=== PATIENT | male | born 1945 | race Caucasian/White ===

== ENCOUNTER 2023-09-22 10:34 | Emergency (ER) | payer MEDICARE, SELFPAY ==
[2023-09-22] VITALS (49 sets, daily range): BP systolic 119–175; BP diastolic 41–103; PULSE 47–59; RESP 12–25; TEMP 36.6–36.9; O2SAT 93–98
--- NOTE | 2023-09-22 10:30 | RT.EKG_ITS ---
APPROVED REPORT Exam: Resting ECG Reason for Exam: Syncope Patient Location: E HR:49 bpm ECG Measurements Heart Rate 49 AXIS TN 167 P 10 QRSd 94 QRS -5 QT 430 T 32 QTc 391 Conclusion Sinus bradycardia...rate< 60 Low voltage, precordial leads...precordial leads <1.0mV Sinus bradycardia rate of 49. Normal axis. Intervals within normal limits. No ST segment abnormali ties beyond mild upsloping ST segment elevation in V2 and mild ST segment depression in lead III. No prior for comparison. No acute injury pattern.
--- NOTE | 2023-09-22 10:51 | ED.GENADUL_ITS ---
Discharge Plan Disposition Patient Disposition: Home Condition: Stable Discharge Details Clinical Impression: Vasovagal near syncope Primary Care Provider: Vanessa,Local ED Provider: Fito Chowdhury Home Meds and New Rx's Prescriptions: Continued insulin lispro 100 unit/mL solution See Rx Instructions .ROUTE .COMPLEX Rx Instructions: base of 9u, then sliding scale; insulin glargine [Basaglar KwikPen U-100 Insulin] 100 unit/mL (3 mL) insulin pen 5 unit subcut DAILY metoprolol tartrate 25 mg tablet 25 mg PO BID Eliquis 5 mg tablet 5 mg PO BID hydrochlorothiazide 25 mg tablet 25 mg PO ONCE losartan 100 mg tablet 100 mg PO ONCE hydralazine 25 mg tablet 50 mg PO TID atorvastatin 40 mg tablet 60 mg PO ONCE Discharge Instructions Instructions: Vasovagal Response Additional Instructions: You were seen in the emergency department for your near syncope at home. Your cardiac workup is negative, your EKG shows no abnormalities, CT head is negative for any pathology as well as your chest x-ray, your laboratory workup is unremarkable for any signs of infection or major electrolyte abnormalities. There is a mild increase in your blood urea nitrogen which is a early marker of mild dehydration and kidney function. This could be the cause of your near syncope. Please hydrate yourself well over the coming days any nutritious foods, monitor your condition at home for any further palpitations or chest pain or dizziness and return to ED for such. 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 Discharge Data Discharge Date/Time-TO BE ENTERED AT DEPARTURE: 09/22/23 15:56 HPI General Date/Time Provider Initiated Documentation: 09/22/23 10:51 . HPI Narrative: 78 year-old male presents to ED today by EMS with his and son with a chief complaint of near syncope at the breakfast table today with onset around 0930 this morning. Quality described as patient was noted drooping in his chair, his eyes were rolled back- he quickly regained some level of consciousness but was a little slow- answering questions appropriately on arrival, no radiation to chest pain, focal weakness, shortness of breath, headache, visual changes, slurred speech. Severity is described as moderate to severe. Palliating factors include nothing specific. Provoking factors include nothing specific. Events leading up to the incident/Associated Symptoms: Patient denies any cardiac history, has had an 1 episode of A-fib, denied any chest pain throughout the whole of the morning, patient is a noted diabetic-states his baseline heart rate is in the 40s and 50s. Patient is anticoagulated on apixaban. Related Data Home Medications ?Medication ?Instructions ?Recorded ?Confirmed apixaban 5 mg tablet (Eliquis) 5 mg PO BID 09/22/23 09/22/23 atorvastatin 40 mg tablet 60 mg PO ONCE 09/22/23 09/22/23 hydralazine 25 mg tablet 50 mg PO TID 09/22/23 09/22/23 hydrochlorothiazide 25 mg tablet 25 mg PO ONCE 09/22/23 09/22/23 insulin glargine 100 unit/mL (3 5 unit subcut DAILY 09/22/23 09/22/23 mL) subcutaneous pen (Basaglar KwikPen U-100 Insulin) insulin lispro 100 unit/mL See Rx Instructions .Route .COMPLEX 09/22/23 09/22/23 subcutaneous solution losartan 100 mg tablet 100 mg PO ONCE 09/22/23 09/22/23 metoprolol tartrate 25 mg tablet 25 mg PO BID 09/22/23 09/22/23 Allergies Allergy/AdvReac Type Severity Reaction Status Date / Time sulfamethoxazole (From Allergy Mild Hives Verified 09/22/23 11:12 Bactrim) trimethoprim (From Bactrim) Allergy Mild Hives Verified 09/22/23 11:12 General Stated Complaint: Dizzy/Sync ZEB: 3 Review of Systems All systems reviewed & are unremarkable except as noted in HPI and below Exam Narrative Exam Narrative: GENERAL APPEARANCE: Well-nourished, non-toxic, awake and alert, atraumatic, no acute distress. SKIN: Warm, pink, dry, intact, without rashes/lesions/ulcerations. HEAD: Normocephalic, atraumatic, normal hair distribution for gender/age. EYES: Pupils PERRLA, EOMs intact without nystagmus, normal conjunctiva, no exudates on lids/lashes. ENT: Nares patent, no circumoral cyanosis, no facial swelling NECK: Supple, trachea midline, painless cervical ROM. LUNGS/CHEST: Lungs CTA bilaterally, non-labored respirations, normal A/P diameter, symmetrical expansion, no chest wall deformity HEART (CV/PV): Regular rate and rhythm without murmur, no peripheral edema, no JVD. ABDOMEN: Soft, non-distended, no guarding. MSK: Normal ROM, no swelling/deformity to bilateral UEs or LEs, moving all extremities without weakness, no cyanosis, spine midline without tenderness, normal curvature. NEURO: Mental Status AAOx4 - alert to person, place, time, events No facial droop, no forehead involvement. Motor: No focal weakness - strength 5/5 in bilateral UEs and LEs, proximal and distal, symmetric. Sensory: sensation intact to light touch globally. Gait normal: patient ambulated without ataxia into ED room. PSYCH: euthymic, cooperative, pleasant, appropriate speech Course Vital Signs Vital signs: Vital Signs Temperature 36.9 C 09/22/23 10:42 Pulse 51 L 09/22/23 10:42 Respiratory Rate 16 09/22/23 10:42 Blood Pressure 134/41 L 09/22/23 10:42 Pulse Oximetry 98 09/22/23 10:42 Temperature 36.9 C 09/22/23 10:42 Pulse 51 L 09/22/23 10:42 Respiratory Rate 16 09/22/23 10:42 Blood Pressure 134/41 L 09/22/23 10:42 Pulse Oximetry 98 09/22/23 10:42 Pain Level 0 09/22/23 10:42 Medical Decision Making This dictation utilizes [id number] dictation software and may contain unedited grammatical errors. 78 year-old male presents to ED today by EMS with his and son with a chief complaint of near syncope at the breakfast table today with onset around 0930 this morning. Quality described as patient was noted drooping in his chair, his eyes were rolled back- he quickly regained some level of consciousness but was a little slow- answering questions appropriately on arrival, no radiation to chest pain, focal weakness, shortness of breath, headache, visual changes, slurred speech. Severity is described as moderate to severe. Palliating factors include nothing specific. Provoking factors include nothing specific. Events leading up to the incident/Associated Symptoms: Patient denies any cardiac history, has had an 1 episode of A-fib, denied any chest pain throughout the whole of the morning, patient is a noted diabetic-states his baseline heart rate is in the 40s and 50s. Patient is anticoagulated on apixaban. Patients' medical history: Hypertension, atrial fibrillation, type 2 diabetes. Family and social history: Here visiting from the [facility] for a meditation retreat. Pertinent exam findings / vital signs include benign cardiopulmonary exam, neuro intact with an NIH of 0, benign abdomen, nontoxic vitals. Differential / pathologies of concern include vasovagal reaction, arrhythmia, hypoglycemia, partial seizure unlikely, not stroke. Diagnostic studies of: -CBC, CMP, magnesium, TSH, serial troponins, urinalysis, CT head without contrast, x-ray chest, EKG. -CBC shows no leukocytosis, no anemia -CMP shows mildly increased BUN, glucose 230 -TSH within normal limits -Magnesium within normal limits -Serial troponins negative -CT head without acute abnormality -X-ray chest shows no widened mediastinum, no focal pneumonia or other pulmonary pathology -Sinus bradycardia at 49 bpm with normal axis, normal intervals, no ST abnormalities other than a mild ST depression in 3 that is only seen on 1 beat and submillimeter, good R wave progression Interventions of: -None. ED Course/Assessment/Plan: 78-year-old male visiting from the [facility] presents with near syncope at breakfast this morning, he has a negative serial troponin workup for cardiac anomaly, EKG shows his reported baseline bradycardia without concerns for ischemia, CBC shows no signs of infection, CMP only shows a mildly increased BUN which could be a cause of near syncope with mild dehydration, his magnesium is within normal limits, CT head is negative for any intracranial abnormality and chest x-ray shows no pneumonia or pulmonary pathology, no widened mediastinum. His heart score is a low risk and he is from the [facility] they will recommend that he follow-up with his primary and spray drier operator helper upon return with strict return to ED criteria for any further episodes of near syncope, encouraged good hydration habits over the next couple days and careful monitoring of his co ndition with family able to help supervise as well. Findings not consistent with acute coronary syndrome, seizure activity, stroke, heart block or dangerous arrhythmia. Disposition of Vasovagal Near Syncope. Patient verbalized understanding of the plan and return to ED criteria and engaged in shared decision making. Medical Records Medical records reviewed: Yes I reviewed the patient's medical records. Imaging Data Radiologic Study: Attestation: I personally reviewed and interpreted this imaging study as follows: Imaging: CT Scan Radiologist's impression: Exam: CT Head Without Contrast Exam date and time: 09/22/2023 11:17 AM Age: 78 years old Clinical indication: Near syncope TECHNIQUE: Imaging protocol: Computed tomography of the head without contrast. COMPARISON: No relevant prior studies available. FINDINGS: Brain: No acute intracranial hemorrhage or abnormal intracranial mass effect is identified. Very mild chronic appearing small-vessel ischemic changes are noted. MR diffusion imaging could provide more sensitive assessment for acute ischemia if clinically warranted and feasible. There are no subdural collections. Mild age-appropriate atrophy is present. There is atherosclerotic calcification of the carotid siphons. Cerebral ventricles: Size within normal range for age and the degree of volume loss. No midline shift. Paranasal sinuses: Visualized portions of paranasal sinuses are well aerated. Mastoid air cells: Visualized portions of mastoid sinuses are not opacified. Bones: Unremarkable. No acute fracture. Soft tissues: Other than as stated above, no obvious acute abnormality. IMPRESSION: No acute intracranial hemorrhage or mass effect. Dictated and Authenticated by: Geovani Saenz MD. Radiologic Study #2: Attestation: I personally reviewed and interpreted this imaging study as follows: Imaging: X-Ray Radiologist's impression: Exam: XR Chest Exam date and time: 09/22/2023 11:21 AM Age: 78 years old Clinical indication: Other: Near syncope TECHNIQUE: Imaging protocol: Radiologic exam of the chest. Views: 2 views. COMPARISON: No relevant prior studies available. FINDINGS: Lungs: Mild chronic appearing density in the right middle lobe distribution; no prior studies are available for comparison. Otherwise, lungs are clear. Pleural spaces: No significant pleural fluid. No pneumothorax detected. Heart/Mediastinum: Heart size within normal range. No pulmonary vascular congestion. Bones/joints: No obvious acute abnormality. IMPRESSION: No definite acute cardiopulmonary abnormality. No prior studies are available for comparison. Dictated and Authenticated by: Geovani Saenz MD. Lab Data Lab results reviewed: Yes I reviewed the patient's lab results. Labs: Laboratory Tests Range/Units 09/22/23 09/22/23 11:05 14:15 WBC (4.4-10.8) 10^3/uL 8.51 RBC (4.36-5.78) 10^6/uL 4.33 L Hgb (13.5-17.5) g/dL 13.6 Hct (40.0-50.0) % 39.7 L MCV (80-95) fL 92 MCH (27.0-33.0) pg 31.4 MCHC (32.0-36.0) % 34.3 RDW (11.8-14.1) % 12.7 Plt Count (130-400) 10^3/uL 192 MPV (8.0-11.0) fL 10.6 Immature Gran % % 0.4 Neutrophils % % 74.2 Lymphocytes % % 14.5 Monocytes % % 7.6 Eosinophils % % 2.8 Basophils % % 0.5 Nucleated RBC % (0.0-0.3) % 0.0 Absolute Neutrophils (1.2-6.7) 10^3/uL 6.32 Absolute Lymphocytes (1.2-3.4) 10^3/uL 1.23 Absolute Monocytes (0.1-0.8) 10^3/uL 0.65 Absolute Eosinophils (0.0-0.7) 10^3/uL 0.24 Absolute Basophils (0.0-0.2) 10^3/uL 0.04 Sodium (136-145) mmol/L 136 Potassium (3.5-5.1) mmol/L 3.5 Chloride (98-107) mmol/L 102 Carbon Dioxide (21.0-32.0) mmol/L 30.4 Anion Gap (3-11) mmol/L 3.6 BUN (7-18) mg/dL 27 H Creatinine (0.70-1.30) mg/dL 1.1 Est GFR (CKD-EPI 2020) (mL/min/1.73m2) 68.29 Glucose (74-106) mg/dL 230 H Calcium (8.5-10.1) mg/dL 9.2 Magnesium (1.8-2.4) mg/dL 1.9 Total Bilirubin (0.2-1.0) mg/dL 0.70 AST (15-37) U/L 17 ALT (16-63) U/L 26 Alkaline Phosphatase (46-116) U/L 92 Troponin I (< or =60) ng/L < 50 < 50 Total Protein (6.4-8.2) g/dL 6.9 Albumin (3.4-5.0) g/dL 3.5 TSH (0.36-3.74) uIU/mL 2.50 Quality:SDOH Health Related Social Needs: No Data to Display PFSH All Active Problems (Updated 09/22/23 @ 15:01 by JUSTIN Conde) Vasovagal near syncope (Acute) Social History Smoking/Tobacco Use Status: Never Smoking risk assessment performed?: Yes Alcohol Intake: current Drug use: Never Substance use type: does not use Housing: house Do you feel safe at home: Yes Do you feel safe in your relationship?: Yes
[2023-09-22 11:11] LABS: Abs Immature Grans 0.03 10^3/uL (0.0-0.06); Absolute Basophil Count 0.04 10^3/uL (0.0-0.2); Absolute Eosinophil Count 0.24 10^3/uL (0.0-0.7); Absolute Lymphocyte Count 1.23 10^3/uL (1.2-3.4); Absolute Monocyte Count 0.65 10^3/uL (0.1-0.8); Absolute Neutrophil Count 6.32 10^3/uL (1.2-6.7); Basophils % 0.5 %; Eosinophils % 2.8 %; HCT 39.7 % (40.0-50.0); HGB 13.6 g/dL (13.5-17.5); Immature Grans % 0.4 %; Lymphocytes % 14.5 %; MCH 31.4 pg (27.0-33.0); MCHC 34.3 % (32.0-36.0); MCV 92 fL (80-95); MPV 10.6 fL (8.0-11.0); Monocytes % 7.6 %; Neutrophils % 74.2 %; Platelet Count 192 10^3/uL (130-400); RBC 4.33 10^6/uL (4.36-5.78); RDW 12.7 % (11.8-14.1); RDW-SD 42.4 fL; WBC 8.51 10^3/uL (4.4-10.8)
--- NOTE | 2023-09-22 11:18 | DI.CT_ITS ---
Exam(s) CT HEAD WO EXAM: CT HEAD WO CLINICAL HISTORY: near syncope. TECHNIQUE: Imaging Protocol: Axial computed tomography images with coronal and sagittal reformatted images were created and reviewed COMPARISON: No exams were available for comparison FINDINGS: Ventricles and Extra axial spaces: Normal in size and morphology for the patient's age. Hemorrhage: None. Cerebral parenchyma: No evidence of acute infarct or mass. Midline shift: None. Brainstem/Cerebellum: Minimal atrophy put. Minimal white matter changes of microvascular disease. Calvarium: Normal. Visualized Paranasal sinuses:Clear. Mastoids: Clear. Soft Tissues: Unremarkable. ORBITS: Unremarkable. PITUITARY: Not enlarged. IMPRESSION: No acute intracranial process. RADIATION DOSE DELIVERED: Total DLP DATA REPOSITORY: All CT scans at this facility are submitted to the National Radiology Data Registry (NRDR) Dose Index Registry (DIR) with the [employer] ([employer]). RADIATION OPTIMIZATION: All CT scans at this facility use at least one of these dose optimization te chniques: automated exposure control; mA and/or kV adjustment per patient size (includes targeted exa ms where dose is matched to clinical indication); or iterative reconstruction.
--- NOTE | 2023-09-22 11:23 | DI.RAD_ITS ---
Exam(s) XR CHEST 2V PA LATERAL EXAM: XR CHEST 2V PA LATERAL CLINICAL HISTORY: near syncope TECHNIQUE: 2D digital imaging was performed. Two views. COMPARISON: No exams were available for comparison FINDINGS: Somewhat limited by overlying monitoring leads. HEART: Normal size. Aorta: Not dilated. PULMONARY VASCULATURE: Normal. MEDIASTINUM: Unremarkable. LUNGS: Linear scarring right middle lobe, otherwise clear. PLEURAL SPACE: No pleural effusion or pneumothorax. BONE:Unremarkable for age. SOFT TISSUES: Unremarkable. IMPRESSION: No acute abnormality. DATA REPOSITORY: RADIATION DOSE DELIVERED:
--- NOTE | 2023-09-22 11:29 | DI.VRAD_ITS ---
PROCEDURE INFORMATION: Exam: CT Head Without Contrast Exam date and time: 09/22/2023 11:17 AM Age: 78 years old Clinical indication: Near syncope TECHNIQUE: Imaging protocol: Computed tomography of the head without contrast. COMPARISON: No relevant prior studies available. FINDINGS: Brain: No acute intracranial hemorrhage or abnormal intracranial mass effect is identified. Very mild chronic appearing small-vessel ischemic changes are noted. MR diffusion imaging could provide more sensitive assessment for acute ischemia if clinically warranted and feasible. There are no subdural collections. Mild age-appropriate atrophy is present. There is atherosclerotic calcification of the carotid siphons. Cerebral ventricles: Size within normal range for age and the degree of volume loss. No midline shift. Paranasal sinuses: Visualized portions of paranasal sinuses are well aerated. Mastoid air cells: Visualized portions of mastoid sinuses are not opacified. Bones: Unremarkable. No acute fracture. Soft tissues: Other than as stated above, no obvious acute abnormality. IMPRESSION: No acute intracranial hemorrhage or mass effect. Dictated and Authenticated by: Geovani Saenz MD. Ordering:NAV Payton MD
--- NOTE | 2023-09-22 11:30 | DI.VRAD_ITS ---
PROCEDURE INFORMATION: Exam: XR Chest Exam date and time: 09/22/2023 11:21 AM Age: 78 years old Clinical indication: Other: Near syncope TECHNIQUE: Imaging protocol: Radiologic exam of the chest. Views: 2 views. COMPARISON: No relevant prior studies available. FINDINGS: Lungs: Mild chronic appearing density in the right middle lobe distribution; no prior studies are available for comparison. Otherwise, lungs are clear. Pleural spaces: No significant pleural fluid. No pneumothorax detected. Heart/Mediastinum: Heart size within normal range. No pulmonary vascular congestion. Bones/joints: No obvious acute abnormality. IMPRESSION: No definite acute cardiopulmonary abnormality. No prior studies are available for comparison. Dictated and Authenticated by: Geovani Saenz MD. Ordering:NAV Payton MD
[2023-09-22 11:41] LABS: ALT 26 U/L (16-63); AST 17 U/L (15-37); Albumin 3.5 g/dL (3.4-5.0); Alkaline Phosphatase 92 U/L (46-116); Anion Gap 3.6 mmol/L (3-11); BUN 27 mg/dL (7-18); CO2 30.4 mmol/L (21.0-32.0); CREATININE 1.1 mg/dL (0.70-1.30); Calcium 9.2 mg/dL (8.5-10.1); Chloride 102 mmol/L (98-107); Estimated GFR 68.29 (mL/min/1.73m2); Glucose 230 mg/dL (74-106); Magnesium 1.9 mg/dL (1.8-2.4); Potassium 3.5 mmol/L (3.5-5.1); Sodium 136 mmol/L (136-145); Total Protein 6.9 g/dL (6.4-8.2); Troponin I < 50 ng/L (< or =60)
[2023-09-22 14:41] LABS: Troponin I < 50 ng/L (< or =60)
[2023-09-22 15:28] LABS: Bilirubin Negative (Negative); Blood Negative (Negative); Clarity Clear (Clear); Glucose Negative (Negative); Ketones Trace mg/dL (Negative); Leukocyte Esterase Negative (Negative); Nitrite Negative (Negative); Urobilinogen 0.2 mg/dL (Up to 0.2)
== END 2023-09-22 15:56 | disposition home or self-care (01) ==
PROVIDERS: Emergency Provider Physician Assistant
DX: R55 Syncope and collapse (principal); E11.9 Type 2 diabetes mellitus without complications; Z79.4 Long term (current) use of insulin
CPT/HCPCS: 36415; 36416; 80053; 82962; 93005; 99284; 70450; 71046; 81003; 83735; 84443; 84484; 85025; 93010; 99283